=== PATIENT | male | born 1995 | race Caucasian/White ===

== ENCOUNTER 2017-04-14 17:42 | Emergency (ER) | payer OTHER ==
[~2017-04-14] VITALS: Ht 177.8 cm; Wt 66.0 kg
[2017-04-14 17:48] VITALS: Ht 177.8 cm; Wt 66.0 kg
[2017-04-14] MEDS ORDERED: SODIUM CHLORIDE 0.9% 1000ML 1,000 ML IV STA ×3 (17:55→20:30)
[2017-04-14] MEDS ORDERED: ONDANSETRON INJ 2 MG/ML 2 ML VIAL IV STA (17:55)
[2017-04-14] MEDS ORDERED: AZAT50TA17 PO (18:01)
[2017-04-14] MEDS ORDERED: RMCI IV (18:01)
--- NOTE | 2017-04-14 18:03 | EMERGENCY ROOM VISIT NOTE ---
History Report prepared by Scribe: Jess Chino Under the Supervision of: Dr. Isaiah Hickey D.O. First contact with patient: 17:52 Chief Complaint: ABDOMINAL PAIN Stated Complaint: CROHNS, PAIN IN AREA ASSOCIATED W ACCENDING COLON History of Present Illness The patient is a 21 year old male who presents to the Emergency Room with complaints of persistent abdominal pain for the past 5 days. He admits to a history of Crohn's disease, for which he receives Remicade infusions. He notes he has felt constipated recently, so he used an enema last night that provided good relief. This morning, he developed abdominal pain. He rates his discomfort as a 7/10 in severity. He was nauseous last night, but it has resolved and he never vomited. He denies any rectal bleeding. He admits to a slight fever, but nothing above 100.3. He cannot remember how long he has had the fever for. He denies any hematochezia. Source of History: patient Onset: 5 days DIETETIC TECH Position: abdomen Symptom Intensity: 7/10 in severity Timing: other (persistent) Associated Symptoms: + fevers, + nausea, No vomiting, No hematochezia Review of Systems See HPI for pertinent positives & negatives. A total of 10 systems reviewed and were otherwise negative. Past Medical & Surgical Medical Problems: (1) Crohn's disease Social History Smoking Status: Never Smoker Alcohol Use: occasionally Drug Use: none Marital Status: single Housing Status: lives alone Occupation Status: [employer] student Current/Historical Medications Scheduled Azathioprine (Imuran), 100 MG PO QAM Infliximab (Remicade), 1 DOSE IV [id number] Allergies Coded Allergies: Penicillins (Unverified Allergy, Unknown, HIVES, 04/14/17) Physical Exam Vital Signs Date Time Temp Pulse Resp B/P (MAP) Pulse Ox O2 Delivery O2 Flow Rate FiO2 04/14/17 21:24 37.4 04/14/17 20:50 78 22 126/67 98 Room Air 04/14/17 19:30 70 21 121/67 97 Room Air 04/14/17 19:13 77 04/14/17 19:00 81 22 118/68 96 Room Air 04/14/17 18:28 86 18 118/67 94 Room Air 04/14/17 17:48 37.8 92 20 118/74 97 Room Air Physical Exam GENERAL: Patient is awake, alert, in no acute distress, patient is resting comfortably and showing no signs of anxiety EYES: The conjunctivae are clear. The pupils are round and reactive. EARS, NOSE, MOUTH AND THROAT: The nose is without any evidence of any deformity. Mucous membranes are moist tongue is midline NECK: The neck is nontender and supple. RESPIRATORY: Normal respiratory effort is noted there is no evidence of wheezing rhonchi or rales CARDIOVASCULAR: Regular rate and rhythm noted there no murmurs rubs or gallops normal S1 normal S2 GASTROINTESTINAL: The abdomen is soft with slight right sided tenderness to palpation. No guarding or rigidity noted. MUSCULOSKELETAL/EXTREMITIES: There is no evidence of gross deformity full range of motion is noted in the hips and shoulders SKIN: There is no obvious evidence of any rash. There are no petechiae, pallor or cyanosis noted. NEUROLOGIC: Patient is awake alert and oriented x3 Medical Decision & Procedures ER Provider Diagnostic Interpretation: Radiology results as stated below per my review and radiologist interpretation: CT SCAN OF THE ABDOMEN AND PELVIS WITH IV CONTRAST CLINICAL HISTORY: Fever. Right lower quadrant abdominal pain. COMPARISON STUDY: No priors. TECHNIQUE: Following the IV administration of 93 cc of Optiray 320, CT scan of the abdomen and pelvis is performed from the lung bases to the proximal femora. Images are reviewed in the axial, sagittal, and coronal planes. IV contrast was administered without complication. A dose lowering technique was utilized adhering to the principles of ALARA. CT DOSE: 286.21 mGy.cm FINDINGS: Lung bases: The heart is normal in size and without pericardial effusion. The lung bases are clear. Liver: The contrast-enhanced liver is normal in size, contour, and attenuation. There is no intrahepatic biliary ductal dilatation. The hepatic veins and portal veins are patent. Gallbladder: Unremarkable. Spleen: Normal in size and attenuation. Pancreas: Unremarkable. Adrenal glands: Unremarkable. Kidneys: The contrast enhanced kidneys are normal in size and without hydronephrosis. The kidneys enhance symmetrically. There are at least 6 small nonobstructing renal calculi measuring up to 3 mm. Punctate nonobstructing left or a calculi are also identified. Abdominal vasculature: The abdominal aorta is normal in course and caliber. Bowel: No bowel obstruction is seen. The appendix is distended and fluid-filled measuring up to 8 mm in thickness. The appendiceal wall is thickened and hyperemic and there is periappendiceal inflammation. The appearance is consistent with acute appendicitis. There is discontinuity of the appendiceal wall at the appendiceal tip suggesting perforation. There is an 8.5 x 6.5 x 5.0 cm multiloculated gas and fluid containing collection seen below the right lobe of liver and above the appendiceal tip consistent with an abscess. There is wall thickening and edema identified involving the cecum, likely related to adjacent appendicitis. The distal/terminal ileum is normal in appearance. Fecal retention is noted in the right colon. Peritoneum: There is a small volume of free fluid in the pelvis. No intraperitoneal free air is seen. See above for discussion of an appendiceal abscess. Lymphadenopathy: There are numerous prominent mesenteric lymph nodes in the right lower quadrant measure up to 9 mm, likely on a reactive basis. Pelvic viscera: The bladder, prostate, and seminal vesicles are normal as visualized. Skeletal structures: No lytic or blastic lesions are seen. IMPRESSION: 1. Findings are most consistent with perforated appendicitis with a large (8.5 x 6.5 x 5.0 cm) multiloculated appendiceal abscess located below the right lobe of the liver. 2. There is wall thickening and edema identified in the ascending colon, likely related to adjacent inflammation from the perforated appendix. 3. The distal/terminal ileum is normal in appearance. No bowel obstruction is seen. 4. Free fluid in the pelvis and mildly enlarged mesenteric lymph nodes are likely on a reactive basis. 5. There are numerous small nonobstructing renal calculi. Findings were discussed with Dr. Hickey in the emergency department at the time of interpretation. Electronically signed by: Orville Melvin M.D. 04/14/2017 8:29 PM Laboratory Results 04/14/17 18:15 Red Blood Count 4.95, Mean Corpuscular Volume 81.4, Mean Corpuscular Hemoglobin 28.7, Mean Corpuscular Hemoglobin Concent 35.2, Mean Platelet Volume 9.6, Neutrophils (%) (Auto) 68.4, Lymphocytes (%) (Auto) 15.0, Monocytes (%) (Auto) 16.0, Eosinophils (%) (Auto) 0.2, Basophils (%) (Auto) 0.1, Neutrophils # (Auto ) 9.91, Lymphocytes # (Auto) 2.18, Monocytes # (Auto) 2.32, Eosinophils # (Auto ) 0.03, Basophils # (Auto) 0.02 04/14/17 18:15 Test 04/14/17 18:15 04/14/17 20:00 White Blood Count 14.51 K/uL (4.8-10.8) Red Blood Count 4.95 M/uL (4.7-6.1) Hemoglobin 14.2 g/dL (14.0-18.0) Hematocrit 40.3 % (42-52) Mean Corpuscular Volume 81.4 fL (80-100) Mean Corpuscular Hemoglobin 28.7 pg (25-34) Mean Corpuscular Hemoglobin Concent 35.2 g/dl (32-36) Platelet Count 348 K/uL (130-400) Mean Platelet Volume 9.6 fL (7.4-10.4) Neutrophils (%) (Auto) 68.4 % Lymphocytes (%) (Auto) 15.0 % Monocytes (%) (Auto) 16.0 % Eosinophils (%) (Auto) 0.2 % Basophils (%) (Auto) 0.1 % Neutrophils # (Auto) 9.91 K/uL (1.4-6.5) Lymphocytes # (Auto) 2.18 K/uL (1.2-3.4) Monocytes # (Auto) 2.32 K/uL (0.11-0.59) Eosinophils # (Auto) 0.03 K/uL (0-0.5) Basophils # (Auto) 0.02 K/uL (0-0.2) RDW Standard Deviation 43.5 fL (36.4-46.3) RDW Coefficient of Variation 14.7 % (11.5-14.5) Immature Granulocyte % (Auto) 0.3 % Immature Granulocyte # (Auto) 0.05 K/uL (0.00-0.02) Erythrocyte Sedimentation Rate 70 mm/hr (0-14) Anion Gap 6.0 mmol/L (3-11) Est Creatinine Clear Calc Drug Dose 126.2 ml/min Estimated GFR () 142.3 Estimated GFR (Non- 122.8 BUN/Creatinine Ratio 10.5 (10-20) Calcium Level 9.2 mg/dl (8.5-10.1) Total Bilirubin 0.5 mg/dl (0.2-1) Direct Bilirubin 0.1 mg/dl (0-0.2) Aspartate Amino Transf (AST/SGOT) 11 U/L (15-37) Alanine Aminotransferase (ALT/SGPT) 18 U/L (12-78) Alkaline Phosphatase 80 U/L (45-117) C-Reactive Protein 25.30 mg/dl (0-0.29) Total Protein 8.5 gm/dl (6.4-8.2) Albumin 3.4 gm/dl (3.4-5.0) Lipase 56 U/L (73-393) Urine Color YELLOW Urine Appearance CLEAR (CLEAR) Urine pH 6.0 (4.5-7.5) Urine Specific [place] 1.006 (1.000-1.030) Urine Protein NEG (NEG) Urine Glucose (UA) NEG (NEG) Urine Ketones NEG (NEG) Urine Occult Blood NEG (NEG) Urine Nitrite NEG (NEG) Urine Bilirubin NEG (NEG) Urine Urobilinogen NEG (NEG) Urine Leukocyte Esterase NEG (NEG) Laboratory results per my review. Medications Administered Medications (Trade) Dose Ordered Sig/Brittnee Route Start Time Stop Time Status Last Admin Dose Admin Sodium Chloride 1,000 ml @ 999 mls/hr Q1H1M STAT IV 04/14/17 17:55 04/14/17 18:55 DC 04/14/17 18:22 999 MLS/HR Ondansetron HCl (Zofran Inj) 4 mg NOW STAT IV 04/14/17 17:55 04/14/17 17:56 DC 04/14/17 18:21 4 MG Morphine Sulfate (MoRPHine SULFATE INJ) 4 mg Q15M PRN IV 04/14/17 18:00 04/28/17 17:59 04/14/17 21:32 4 MG Sodium Chloride 1,000 ml @ 999 mls/hr Q1H1M STAT IV 04/14/17 20:30 04/14/17 21:30 DC 04/14/17 20:48 999 MLS/HR Metronidazole (Flagyl / Nss) 500 mg NOW STAT IV 04/14/17 20:30 04/14/17 20:31 DC 04/14/17 20:48 500 MG Cefoxitin Sodium 2000 mg/Dextrose 60 ml @ 120 mls/hr NOW ONCE IV 04/14/17 21:00 04/14/17 21:29 DC 04/14/17 21:14 120 MLS/HR ED Course 1754: The patient was evaluated in room C11. A complete history and physical examination were performed. 1755: Zofran 4 mg IV, NSS 1000 ml @ 999 mls/hr IV. 1800: Morphine Sulfate 4 mg IV. 2029: I discussed the patients case with Dr. Neff, [facility] General Surgery. He recommends the patient be transferred to an acute care facility. 2029: Flagyl 500 mg IV, Cefoxitin Sodium 2000 mg IV, NSS 1000 ml @ 250 mls/hr IV , NSS 1000 ml @ 999 mls/hr IV. 2034: I reevaluated the patient. He is resting comfortably. I discussed his results and my recommendation he be further evaluated at an acute care facility and he verbalized complete understanding and agreement. 2037: I discussed the patients case with Dr. Nice, [facility] General Surgery. She recommends transfer to the [facility] ED immediately. 2052: I reevaluated the patient. He is resting comfortably. He requests I speak with his uncle, who is a physician. I spoke with the patients uncle and updated him on his results so far. 2100: Cefoxitin Sodium 2000 mg/Dextrose 60 ml @ 120 mls/hr IV. Medical Decision Prior records/ancillary studies reviewed. Triage Nursing notes reviewed. The patient's history was concerning for abdominal pain. Differential diagnosis: Etiologies such as appendicitis, diverticulitis, PUD, biliary pathology, UTI, pancreatitis, obstruction, mesenteric ischemia, aortic pathology, infections, inflammatory bowel disease, renal colic, as well as others were entertained. The patient is a 21-year-old male who has a history of recently diagnosed Crohn' s disease who presented to the emergency department for right-sided abdominal pain. The patient felt that this was consistent with his previous episodes of Crohn's however he has a low-grade fever and an elevated white blood cell count at this time. The patient's physical exam was consistent with significant right- sided abdominal tenderness. He had a low-grade fever in the emergency department. Currently the patient is taking immunologic modulators to treat his Crohn's disease. Because of his elevation in white blood cell count as well as elevated inflammatory markers CT the abdomen and pelvis was obtained in the emergency department. The patient was treated with IV fluids IV pain medicine and IV antiemetics. On subsequent reevaluation he was feeling much better. He was also started on IV antibiotics after CT revealed signs of a ruptured appendicitis with intra-abdominal abscess. I discussed the patient's laboratory and radiographic studies with him. I also discussed his case with the on-call general surgeon. Given the location of the intra-abdominal abscess he felt the patient would be better served at a tertiary center. The patient is from the [facility] and had a GI workup in the past with a electronic drafter at [facility]. For this reason I discussed his case with the general surgical group nurses' association counselor at that facility. They've agreed to accept the patient in transfer but recommended that he go directly to the emergency department for further evaluation and for possible interventional radiology or infectious disease evaluation. I discussed this plan with the patient. He was agreeable. Transfer paperwork was filled out by myself. The patient is awaiting transportation at this time. Medication Reconcilliation Current Medication List: was personally reviewed by me Blood Pressure Screening Patient's blood pressure: Normal blood pressure Blood pressure disposition: Did not require urgent referral Consults Time Called: 2024 Consulting Physician: Dr. Neff [facility] General Surgery Returned Call: 2029 I discussed the patients case with Dr. Neff [facility] General Surgery. He recommends the patient be transferred to an acute care facility. Additional Consults: Time Called: 2035 Consulted Physician: Dr. Nice, [facility] General Surgery Returned Call: 2037 Additional Comments: I discussed the patients case with Dr. Nice, [facility] General Surgery. She recommends transfer to the [facility] ED immediately. Impression Primary Impression: Ruptured appendicitis Additional Impression: Intra-abdominal abscess Scribe Attestation The scribe's documentation has been prepared under my direction and personally reviewed by me in its entirety. I confirm that the note above accurately reflects all work, treatment, procedures, and medical decision making performed by me. Departure Information Dispostion Transfer Acute Care Facility (The patient has been accepted as a transfer at [facility]) Referrals Chad Beck M.D. (PCP) Patient Instructions My [facility] Problem Qualifiers
[2017-04-14] MEDS ORDERED: OPTIRAY 320 IV PRN (18:15)
[2017-04-14] MEDS: MoRPHine SULFATE 4 MG/ML 1 ML CARP\\VIAL IV PRN ×2 (18:22→21:32)
[2017-04-14 18:45] LABS: BASO % 0.1 %; BASO ABS # 0.02 K/uL (0-0.2); COMPLETE YES; EOS % 0.2 %; HEMATOCRIT 40.3 % (42-52); IG% 0.3 %; LYMPH ABS # 2.18 K/uL (1.2-3.4); MEAN CELL VOLUME 81.4 fL (80-100); MEAN CORPUSCULAR HEMOGLOBIN 28.7 pg (25-34); MEAN CORPUSCULAR HGB CONC 35.2 g/dl (32-36); MEAN PLATELET VOLUME 9.6 fL (7.4-10.4); NEUT % 68.4 %; PLATELET COUNT 348 K/uL (130-400); RED BLOOD COUNT 4.95 M/uL (4.7-6.1); WHITE BLOOD COUNT 14.51 K/uL (4.8-10.8)
[2017-04-14 19:04] LABS: BUN/CREATININE RATIO 10.5 (10-20); CALCIUM 9.2 mg/dl (8.5-10.1); CREATININE 0.85 mg/dl (0.60-1.40); POTASSIUM 3.8 mmol/L (3.5-5.1)
[2017-04-14 19:10] LABS: C-REACTIVE PROTEIN 25.3 mg/dl (0-0.29)
[2017-04-14 20:13] LABS: URINE APPEARANCE CLEAR (CLEAR); URINE BILIRUBIN NEG (NEG); URINE COLOR YELLOW; URINE NITRITE NEG (NEG); URINE SPECIFIC GRAVITY 1.006 (1.000-1.030); UROBILINOGEN NEG (NEG)
[2017-04-14 20:18] LABS: MANUAL MICROSCOPIC REQUIRED? NO; REVIEW REQ? NO
[2017-04-14] MEDS ORDERED: CEFOXITIN 2000MG/60 ML D5W IV STA (20:30)
[2017-04-14] MEDS ORDERED: METRONIDAZOLE 500MG / 100ML NSS IV STA (20:30)
--- NOTE | 2017-04-14 20:30 | DIAGNOSTIC IMAGING REPORT ---
CT SCAN OF THE ABDOMEN AND PELVIS WITH IV CONTRAST CLINICAL HISTORY: Fever. Right lower quadrant abdominal pain. COMPARISON STUDY: No priors. TECHNIQUE: Following the IV administration of 93 cc of Optiray 320, CT scan of the abdomen and pelvis is performed from the lung bases to the proximal femora. Images are reviewed in the axial, sagittal, and coronal planes. IV contrast was administered without complication. A dose lowering technique was utilized adhering to the principles of ALARA. CT DOSE: 286.21 mGy.cm FINDINGS: Lung bases: The heart is normal in size and without pericardial effusion. The lung bases are clear. Liver: The contrast-enhanced liver is normal in size, contour, and attenuation. There is no intrahepatic biliary ductal dilatation. The hepatic veins and portal veins are patent. Gallbladder: Unremarkable. Spleen: Normal in size and attenuation. Pancreas: Unremarkable. Adrenal glands: Unremarkable. Kidneys: The contrast enhanced kidneys are normal in size and without hydronephrosis. The kidneys enhance symmetrically. There are at least 6 small nonobstructing renal calculi measuring up to 3 mm. Punctate nonobstructing left or a calculi are also identified. Abdominal vasculature: The abdominal aorta is normal in course and caliber. Bowel: No bowel obstruction is seen. The appendix is distended and fluid-filled measuring up to 8 mm in thickness. The appendiceal wall is thickened and hyperemic and there is periappendiceal inflammation. The appearance is consistent with acute appendicitis. There is discontinuity of the appendiceal wall at the appendiceal tip suggesting perforation. There is an 8.5 x 6.5 x 5.0 cm multiloculated gas and fluid containing collection seen below the right lobe of liver and above the appendiceal tip consistent with an abscess. There is wall thickening and edema identified involving the cecum, likely related to adjacent appendicitis. The distal/terminal ileum is normal in appearance. Fecal retention is noted in the right colon. Peritoneum: There is a small volume of free fluid in the pelvis. No intraperitoneal free air is seen. See above for discussion of an appendiceal abscess. Lymphadenopathy: There are numerous prominent mesenteric lymph nodes in the right lower quadrant measure up to 9 mm, likely on a reactive basis. Pelvic viscera: The bladder, prostate, and seminal vesicles are normal as visualized. Skeletal structures: No lytic or blastic lesions are seen. IMPRESSION: 1. Findings are most consistent with perforated appendicitis with a large (8.5 x 6.5 x 5.0 cm) multiloculated appendiceal abscess located below the right lobe of the liver. 2. There is wall thickening and edema identified in the ascending colon, likely related to adjacent inflammation from the perforated appendix. 3. The distal/terminal ileum is normal in appearance. No bowel obstruction is seen. 4. Free fluid in the pelvis and mildly enlarged mesenteric lymph nodes are likely on a reactive basis. 5. There are numerous small nonobstructing renal calculi. Findings were discussed with Dr. Hickey in the emergency department at the time of interpretation. Electronically signed by: Orville Melvin M.D. 04/14/2017 8:29 PM Dictated Date/Time: 04/14/2017 8:16 PM
[2017-04-14] MEDS ORDERED: CEFOXITIN IV 2,000 MG in DEXTROSE 5% 50ML 50 ML IV ONE (21:00)
[2017-04-14 21:47] VITALS: BP 130/79; PULSE 80; TEMP 37.4; O2SAT 98
== END 2017-04-14 21:37 | disposition short-term general hospital (02) ==
LOC: C.EDB 17:47 → C.EDC 21:37
DX: K35.3 Acute appendicitis with localized peritonitis (principal); K50.90 Crohn's disease, unspecified, without complications; Z79.899 Other long term (current) drug therapy

== ENCOUNTER → 2017-08-30 | Outpatient (CLI) | payer OTHER ==
[~2017-08-30] MED LIST: AZAT50TA17 PO; RMCI IV
[2017-08-30 14:39] LABS: BASO % 0.3 %; BASO ABS # 0.02 K/uL (0-0.2); EOS % 2.2 %; EOS ABS # 0.15 K/uL (0-0.5); HEMATOCRIT 44.3 % (42-52); HEMOGLOBIN 15.4 g/dL (14.0-18.0); IG# 0.02 K/uL (0.00-0.02); LYMPH % 34.8 %; LYMPH ABS # 2.34 K/uL (1.2-3.4); MEAN CELL VOLUME 86.5 fL (80-100); MEAN CORPUSCULAR HEMOGLOBIN 30.1 pg (25-34); MEAN CORPUSCULAR HGB CONC 34.8 g/dl (32-36); MEAN PLATELET VOLUME 10.2 fL (7.4-10.4); MONO % 7.4 %; PLATELET COUNT 305 K/uL (130-400); RED CELL DISTRIBUTION WIDTH CV 13.8 % (11.5-14.5); WHITE BLOOD COUNT 6.73 K/uL (4.8-10.8)
[2017-08-30 14:55] LABS: ALBUMIN 4.5 gm/dl (3.4-5.0); ALT/SGPT 24 U/L (12-78); AST/SGOT 9 U/L (15-37); BLOOD UREA NITROGEN 16 mg/dl (7-18); CALCIUM 9.5 mg/dl (8.5-10.1); CARBON DIOXIDE 27 mmol/L (21-32); CREATININE 0.92 mg/dl (0.60-1.40); GLUCOSE 98 mg/dl (70-99); POTASSIUM 4.3 mmol/L (3.5-5.1); SODIUM 139 mmol/L (136-145)
[2017-08-30 14:58] LABS: ALKALINE PHOSPHATASE 69 U/L (45-117); TOTAL PROTEIN 8.2 gm/dl (6.4-8.2)
== END | disposition home or self-care (01) ==
LOC: C.LAB 13:48
PROVIDERS: ATTEND Pediatrics
DX: K50.118 Crohn's disease of large intestine with other complication (principal); R10.31 Right lower quadrant pain